=== PATIENT | male | born 1990 | race Caucasian/White ===

== ENCOUNTER 2017-10-14 09:47 | Emergency (ER) | payer BC, OTHER ==
[~2017-10-14] VITALS: Ht 180.3 cm; Wt 92.0 kg
[2017-10-14 09:52] VITALS: Ht 180.3 cm; Wt 92.0 kg
[2017-10-14] MEDS ORDERED: ONDANSETRON INJ 2 MG/ML 2 ML VIAL IV STA (10:01)
[2017-10-14] MEDS: HYDROmorphone INJ 1 MG/ML SYR IV PRN ×3 (10:07→11:51)
--- NOTE | 2017-10-14 10:25 | DIAGNOSTIC IMAGING REPORT ---
L ANKLE MIN 3 VIEWS ROUTINE CLINICAL HISTORY: Trauma COMPARISON: None. DISCUSSION: Fracture of the medial malleolus as well as the medial aspect of the distal tibia. Oblique fracture of the distal fibular shaft. The posterior malleolus appears to be intact. The ankle mortise is aligned appropriately. Moderate localized soft tissue edema. IMPRESSION: 1. Nondisplaced bimalleolar fracture left ankle.. 2. Additional nondisplaced cortical fracture medial aspect distal tibia. The above report was generated using voice recognition software. It may contain grammatical, syntax or spelling errors. Electronically signed by: Thad Law M.D. 10/14/2017 10:24 AM Dictated Date/Time: 10/14/2017 10:22 AM
[2017-10-14] MEDS ORDERED: OXYC1TAB3 PO (11:18)
[2017-10-14] MEDS ORDERED: MULT-506 PO (11:21)
[2017-10-14 11:26] VITALS: BP 136/88; PULSE 60; O2SAT 96
--- NOTE | 2017-10-14 17:17 | EMERGENCY ROOM VISIT NOTE ---
History Report prepared by Trudy: Anup Farfan Under the Supervision of: Dr. Kt Swanson M.D. First contact with patient: 09:53 Chief Complaint: LEG PAIN,LEG INJURY Stated Complaint: LEG PAIN History of Present Illness The patient is a 27 year old male who presents to the Emergency Room with complaints of constant left ankle pain beginning just prior to arrival. 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 The patient states that the platform of the cart used for stepping up onto hit his ankle during the event. He has not noticed any lacerations or bleeding. He rates his current pain as a 9/10 in severity. The patient has not attempted to stand on his left ankle. He has been able to stand on his right ankle successfully. Pt denies LOC, headache, visual changes, neck pain, chest pain, breathing difficulties, nausea, vomiting, abdominal pain, back pain, numbness, weakness, open wounds, active bleeding, or other complaints. Source of History: patient Onset: Just prior to arrival Position: ankle (left) Symptom Intensity: 9/10 Timing: constant Review of Systems See HPI for pertinent positives and negatives. A total of ten systems were reviewed and were otherwise negative. Past Medical & Surgical Medical Problems: (1) No Known Active Medical Problems Family History No pertinent family history stated. Social History Smoking Status: Never Smoker Housing Status: lives with family Current/Historical Medications Scheduled Multivitamin (Multivitamin), 1 TAB PO DAILY Scheduled PRN Oxycodone Ir (Roxicodone Ir), 1-2 TAB PO Q4H PRN for Severe Pain Allergies Coded Allergies: Penicillins (Unverified Allergy, Unknown, rash, 10/14/17) Physical Exam Vital Signs Date Time Temp Pulse Resp B/P (MAP) Pulse Ox O2 Delivery O2 Flow Rate FiO2 10/14/17 11:26 60 18 136/88 96 Room Air 10/14/17 09:52 73 22 140/87 100 Room Air Physical Exam GENERAL: Awake, alert, very uncomfortable-appearing, in no distress HENT: Normocephalic, atraumatic. Oropharynx unremarkable. EYES: Normal conjunctiva. Sclera non-icteric. NECK: Supple. No nuchal rigidity. FROM. No masses. RESPIRATORY: Clear to auscultation. No wheezes. No rales. Normal respiratory effort. CARDIAC: Normal rate. Normal rhythm. No murmurs. No rubs. Extremities warm and well perfused. Pulses equal. No JVD. GI: Soft, non-distended. No tenderness to palpation. No rebound or guarding. No masses. RECTAL: Deferred. MUSCULOSKELETAL: Atraumatic. Chest examination reveals no tenderness. The back is symmetrical on inspection without obvious abnormality. There is no CVA tenderness to palpation. No joint edema. LOWER EXTREMITIES: Left lateral and medial malleolus is tender to palpation. Swelling and bruising noted just proximal to the ankle joint. ROM limited secondary to pain. Tender to the posterior aspect of the left tibia. Left Achilles is non-tender. Minor abrasion to the right lateral malleolus. There is no bony or ligamentous tenderness. No joint effusion. Good range of motion. NEURO: Normal sensorium. No sensory or motor deficits noted. SKIN: No rash or jaundice noted. Medical Decision & Procedures ER Provider Diagnostic Interpretation: Radiology results as stated below per my review and radiologist interpretation: L ANKLE MIN 3 VIEWS ROUTINE DISCUSSION: Fracture of the medial malleolus as well as the medial aspect of the distal tibia. Oblique fracture of the distal fibular shaft. The posterior malleolus appears to be intact. The ankle mortise is aligned appropriately. Moderate localized soft tissue edema. IMPRESSION: 1. Nondisplaced bimalleolar fracture left ankle.. 2. Additional nondisplaced cortical fracture medial aspect distal tibia. The above report was generated using voice recognition software. It may contain grammatical, syntax or spelling errors. Electronically signed by: Thad Law M.D. 10/14/2017 10:24 AM Medications Administered Medications (Trade) Dose Ordered Sig/Ghulam Route Start Time Stop Time Status Last Admin Dose Admin Ondansetron HCl (Zofran Inj) 4 mg NOW STAT IV 10/14/17 10:01 10/14/17 10:03 DC 10/14/17 10:09 4 MG Hydromorphone HCl (Dilaudid Inj) 1 mg Q15M PRN IV 10/14/17 10:15 10/14/17 13:24 DC 10/14/17 11:51 1 MG Procedure SPLINTING: Indication: Fracture The injured extremity was identified. The patient was prepped and measured for the placement of a posterior short leg with stirrup orthoglass splint. Splint applied in the standard fashion over a layer of webril and secured using an elastic bandage. Set into a position of function. Normal neurovascular status after placement verified by me. The patient tolerated the procedure well and the care of the splint was discussed with the patient/family. No complications. ED Course 09: The patient was evaluated in room B12B. A complete history and physical exam was performed. 1001: Ordered Zofran Inj 4 mg IV. 1014: I reassessed the patient. He is feeling better. 1015: Ordered Dilaudid Inj 1 mg IV. 1120: I reevaluated the patient. Discussed results and discharge instructions: he verbalized understanding and agreement. The patient is ready for discharge. Medical Decision Prior records reviewed and summarized above. Triage Nursing notes reviewed and agree them. Additional history obtained from family. The patient's history was concerning for traumatic injury. Differential diagnosis: Etiologies such as fracture, dislocation, neurovascular compromise, compartment syndrome, soft tissue injury, as well as others were entertained. Physical examination: Consistent with an isolated lower extremity injury. ER treatment provided: IV Zofran IV Dilaudid Splint On reassessment the patient felt better. Diagnostics interpreted by me: The labs revealed an unremarkable CBC, coags, and chemistry panel. Imaging studies: Xrays as above. Consultation: A consultation was placed with orthopedics. The case was discussed and diagnostics were reviewed. Follow-up in the office was recommended. The patient has a closed fracture of the left ankle. He is doing much better after pain medication and splinting. He will need close follow-up with orthopedics for further management. He feels comfortable with the plan. Prescription written for oxycodone. Crutches supplied. He will contact the office this afternoon or first thing tomorrow morning. Medication Reconcilliation Current Medication List: was personally reviewed by me Blood Pressure Screening Patient's blood pressure: Elevated blood pressure Blood pressure disposition: Elevated BP felt to be situational Consults Time Called: 1105 Consulting Physician: Naresh Hawkins PA-C - Orthopedics Returned Call: 1110 Discussed the patient's case. John Hawkins PA-C agrees with splinting, crutches, non-weight bearing, and pain medication. He will follow-up with the patient in the office, and recommends he call the office tomorrow morning. Impression Primary Impression: Closed bimalleolar fracture of left ankle Scribe Attestation The scribe's documentation has been prepared under my direction and personally reviewed by me in its entirety. I confirm that the note above accurately reflects all work, treatment, procedures, and medical decision making performed by me. Departure Information Dispostion Home / Self-Care Prescriptions Oxycodone Ir (Roxicodone Ir) 5 Mg Tab 1-2 TAB PO Q4H Y for Severe Pain, #24 TAB Prov: Kt Swanson MD 10/14/17 Referrals No Doctor, Assigned (PCP) Forms HOME CARE DOCUMENTATION FORM, IMPORTANT VISIT INFORMATION Patient Instructions My [facility] Additional Instructions ORTHOPEDIC INSTRUCTIONS: DO NOT drive, drink alcohol, operate machinery, or perform dangerous activities today. You were given medications in the ER that can affect your ability to safely function or operate a vehicle. Oxycodone (OxyIR) 5mg: Take 1-2 pills every four hours for breakthrough pain. Avoid alcohol, operating machinery or dangerous equipment, working on ladders or roofs, DRIVING, or situations where being under the influence may be dangerous. It is recommended to use an [id number] stool softener such as Colace, 100mg twice daily while taking this medication to avoid constipation. Ibuprofen(Motrin, Advil) may be used for fever or pain. Use 600mg every six hours as needed. Take with food. Avoid using more than 2400mg in a 24 hour period. Do not use 2400mg per day for more than three consecutive days without physician direction. Prolonged inappropriate use can lead to stomach upset or ulcers. (AND/OR) Acetaminophen(Tylenol) may be used for fever or pain. Use 1000mg every six hours as needed. Avoid using more than 4000mg in a 24 hour period. Ice compresses for 20 minutes at a time four times daily for 2-3 days. Use the crutches as instructed. Rest and elevate your injury. Do not get the splint wet. If your splint feels excessively tight, you have worsening pain, develop numbness or tingling, or your digits appear blue, loosen the hayden wrap. Then reapply the hayden wrap gently without removing the splint. If your symptoms are not quickly relieved return to the ER for re- evaluation. Return to the ER immediately for any numbness, tingling, severe pain, extreme swelling in the extremity or as needed. Call [facility], [phone], this afternoon or first thing tomorrow morning to arrange follow up for your injury. Ask for an appointment with Dr. Bland. Please let them know that the on-call team was made aware in the ER.
== END 2017-10-14 11:57 | disposition home or self-care (01) ==
LOC: C.EDB 09:48
DX: S82.845A Nondisplaced bimalleolar fracture of left lower leg, initial encounter for closed fracture (principal); X58.XXXA Exposure to other specified factors, initial encounter

== ENCOUNTER → 2017-10-15 | Outpatient (CLI) | payer OTHER ==
[~2017-10-15] MED LIST: MULT-506 PO; OXYC1TAB3 PO
--- NOTE | 2017-10-15 13:00 | DIAGNOSTIC IMAGING REPORT ---
L LOWER EXTREMITY WITHOUT CT DOSE: HISTORY: Trauma. Fracture. LEFT ANKLE FX TECHNIQUE: Multiaxial CT images of the left ankle were performed and reformatted in the sagittal and coronal plane without the use of contrast. A dose lowering technique was utilized adhering to the principles of ALARA. COMPARISON: None. FINDINGS: Oblique nondisplaced fracture distal fibular shaft. Severely comminuted essentially non and/or minimally displaced fracture of the mid to anterior aspect of the tibia. There is a nondisplaced fracture of the medial malleolus. Several small ossific fragments are noted within the joint space. There is considerable fragmentation of the articular surface of the extreme lateral aspect of the distal tibia. The bulk of the posterior malleolus appears to be intact. Subtalar joint is intact. There is considerable soft tissue edematous change about all measures soft tissue structures about the ankle. IMPRESSION: 1. Severely comminuted minimally to nondisplaced fracture of the mid to anterior tibia. 2. Several small loose fragments are identified within the joint space. 3. Oblique fracture distal fibula. 3. Transverse fracture medial malleolus. The above report was generated using voice recognition software. It may contain grammatical, syntax or spelling errors. Electronically signed by: Thad Law M.D. 10/15/2017 12:59 PM Dictated Date/Time: 10/15/2017 12:52 PM
== END | disposition home or self-care (01) ==
LOC: C.CTS 12:23
DX: M25.572 Pain in left ankle and joints of left foot (principal)